=== PATIENT | male | born 1975 | race African-American/Black ===

== ENCOUNTER 2017-02-23 15:19 | Inpatient (IN) | payer OTHER ==
[2017-02-23 17:16] VITALS: BMI 21.7
--- NOTE | 2017-02-23 19:18 | HP ---
CIWA Score - CIWA Score Nausea/Vomitin-No Nausea/No Vomiting Muscle Tremors: 5 Anxiety: 4-Mod. Anxious/Guarded Agitation: 4-Moderately Restless Paroxysmal Sweats: 1-Minimal Palms Moist Orientation: 0-Oriented Tacttile Disturbances: 0-None Auditory Disturbances: 0-None Visual Disturbances: 0-None Headache: 0-None Present CIWA-Ar Total Score: 14 Admission ROS [facility] - HPI Chief Complaint: withdrawal sx Allergies/Adverse Reactions: Allergies Allergy/AdvReac Type Severity Reaction Status Date / Time No Known Allergies Allergy Verified 02/23/17 17:32 History of Present Illness: 41 years old male with long history of alcohol dependence has hiv weight loss bipolar is admitted to detox Exam Limitations: No Limitations - Ebola screening Have you traveled outside of the country in the last 21 days: No Have you had contact with anyone from an Ebola affected area: No Have you been sick,other than usual withdrawal symptoms: No Do you have a fever: No - Review of Systems Constitutional: Loss of Appetite, Changes in sleep, Unintentional Wgt. Loss EENT: reports: No Symptoms Reported Respiratory: reports: No Symptoms reported Cardiac: reports: No Symptoms Reported GI: reports: Nausea, Poor Appetite, Poor Fluid Intake, Abdominal cramping : reports: No Symptoms Reported Musculoskeletal: reports: No Symptoms Reported Integumentary: reports: No Symptoms Reported Neuro: reports: Tremors Endocrine: reports: No Symptoms Reported Hematology: reports: No Symptoms Reported Psychiatric: reports: No Sypmtoms Reported, Judgement Intact, Orientated x3, Anxious, Depressed Other Systems: Reviewed and Negative Patient History - Patient Medical History Hx Anemia: No Hx Asthma: No Hx Chronic Obstructive Pulmonary Disease (COPD): No Hx Cancer: No Hx Cardiac Disorders: No Hx Congestive Heart Failure: No Hx Hypertension: No Hx Hypercholesterolemia: No Hx Pacemaker: No HX Cerebrovascular Accident: No Hx Seizures: No Hx Dementia: No Hx Diabetes: No Hx Gastrointestinal Disorders: No Hx Liver Disease: No Hx Genitourinary Disorders: No Hx Sexually Transmitted Disorders: No Hx Renal Disease (ESRD): No Hx Thyroid Disease: No Hx Human Immunodeficiency Virus (HIV): Yes (2010) Hx Hepatitis C: No Hx Depression: No Hx Suicide Attempt: Yes (cut both arm age 16) Hx Bipolar Disorder: Yes Hx Schizophrenia: No - Patient Surgical History Past Surgical History: No Hx Neurologic Surgery: No Hx Cataract Extraction: No Hx Cardiac Surgery: No Hx Lung Surgery: No Hx Breast Surgery: No Hx Breast Biopsy: No Hx Abdominal Surgery: No Hx Appendectomy: No Hx Cholecystectomy: No Hx Genitourinary Surgery: No Hx Orthopedic Surgery: No - PPD History Previous Implant?: Yes Documented Results: Negative w/o proof Implanted On Prior R Admission?: No PPD to be Administered?: Yes - Smoking Cessation Smoking history: Never smoked Have you smoked in the past 12 months: No Aproximately how many cigarettes per day: 0 Cigars Per Day: 0 Hx Chewing Tobacco Use: No Initiated information on smoking cessation: No - Substance & Tx. History Hx Alcohol Use: Yes Hx Substance Use: No Substance Use Type: Alcohol Hx Substance Use Treatment: Yes (2011) - Substances Abused Alcohol Route: Oral Frequency: Daily Amount used: beer- 3 cases x24oz Age of first use: 16 Date of Last Use: 02/23/17 Family Disease History - Family Disease History Family Disease History: Diabetes: Grandparent, Heart Disease: Father () , Other: Father Admission Physical Exam [facility] - Vital Signs Vital Signs: Vital Signs - 24 hr 02/23/17 17:13 Temperature 97.7 F Pulse Rate 88 Respiratory 18 Rate Blood Pressure 117/80 - Physical General Appearance: Yes: Appropriately Dressed, Mild Distress, Alcohol on Breath , Thin, Tremorous, Irritable, Sweating, Anxious HEENTM: Yes: Hearing grossly Normal, Normal ENT Inspection, Normocephalic, Normal Voice Respiratory: Yes: Chest Non-Tender, Lungs Clear, Normal Breath Sounds, No Respiratory Distress, No Accessory Muscle Use Neck: Yes: Supple, Trachea in good position Breast: Yes: Breasts Symetrical Cardiology: Yes: Regular Rhythm, Regular Rate, S1, S2 Abdominal: Yes: Normal Bowel Sounds, Non Tender, Soft Genitourinary: Yes: Within Normal Limits Back: Yes: Normal Inspection Musculoskeletal: Yes: full range of Motion, Gait Steady Extremities: Yes: Normal Inspection, Normal Range of Motion, Non-Tender, Tremors Neurological: Yes: Fully Oriented, Alert, Motor Strength 5/5, Normal Response, Depressed Affect Integumentary: Yes: Warm Lymphatic: Yes: Within Normal Limits - Diagnostic (1) Alcohol dependence with uncomplicated withdrawal Current Visit: Yes Status: Acute (2) HIV (human immunodeficiency virus infection) Current Visit: Yes Status: Chronic (3) Weight loss Current Visit: Yes Status: Acute (4) Bipolar II disorder Current Visit: Yes Status: Suspected Cleared for Admission [facility] - Detox or Rehab [facility] Level of Care: Medically Managed Detox Regimen/Protocol: Librium S Breath Alcohol Content Breath Alcohol Content: 0.050 Urine Drug Screen - Results Drug Screen Negative: Yes
[2017-02-23] MEDS ORDERED: IBUPROFEN 400 MG TABLET (FP) PO PRN (19:31)
[2017-02-23] MEDS ORDERED: guaiFENesin/D-METHORPHAN HB 10 ML UNIT-DOSE CUPS PO PRN (19:31)
[2017-02-23] MEDS ORDERED: MAGNESIUM HYDROX 2400MG/30ML ORAL SUSPENSION 30 ML CUP PO PRN (19:31)
[2017-02-23] MEDS ORDERED: MAG HYDROX/AL HYDROX/SIMETH 30 ML UNIT-DOSE CUP PO PRN (19:31)
[2017-02-23] MEDS ORDERED: ACETAMINOPHEN 325 MG TABLET (FP) PO PRN (19:31)
[2017-02-23] MEDS ORDERED: LOPERAMIDE HCL 2 MG CAPSULE PO PRN (19:31)
[2017-02-23] MEDS ORDERED: P-EPHED 60MG/TRIPROLIDI 2.5MG TABLET PO PRN (19:31)
[2017-02-23] MEDS ORDERED: MAGNESIUM CITRATE 300 ML BOTTLE PO PRN (19:31)
[2017-02-23] MEDS ORDERED: MENTHOL/PHENOL 1 EACH UD MM PRN (19:31)
[2017-02-23] MEDS ORDERED: chlordiazePOXIDE HCL 25 MG CAPSULE PO PRN (19:31)
[2017-02-23] MEDS: THIAMINE HCL 100 MG TABLET (FP) PO SCH (22:10)
[2017-02-23] MEDS: chlordiazePOXIDE HCL 25 MG CAPSULE PO SCH (22:10)
[2017-02-24 00:46] LABS: URINE APPEARANCE CLEAR; URINE BILIRUBIN NEGATIVE (NEGATIVE); URINE BLOOD NEGATIVE (NEGATIVE); URINE COLOR LTYELLOW; URINE GLUCOSE (UA) NEGATIVE (NEGATIVE); URINE KETONE TRACE (NEGATIVE); URINE NITRITE NEGATIVE (NEGATIVE); URINE PROTEIN NEGATIVE (NEGATIVE); URINE UROBILINOGEN NEGATIVE mg/dL (0.2-1.0)
[2017-02-24] MEDS: chlordiazePOXIDE HCL 25 MG CAPSULE PO SCH ×5 (05:17→22:04)
[2017-02-24 09:56] LABS: MCH 27.9 pg (25.7-33.7); MCHC 31.6 g/dl (32.0-35.9); MEAN CELL VOLUME 88.1 fl (80-96); MEAN PLT VOLUME 9.2 fl (7.5-11.1); PLATELET COUNT 228 K/MM3 (134-434); RDW 13.1 % (11.9-15.9); WHITE BLOOD COUNT 5.4 K/mm3 (4.0-10.0)
[2017-02-24] MEDS: PRENATAL VITAMINS W/ FOLIC ACID TABLET (FP) PO SCH (10:21)
[2017-02-24 10:42] LABS: ALBUMIN 3.5 g/dl (3.4-5.0); ALK PHOS 83 U/L (45-117); ANION GAP 7 (8-16); BILIRUBIN,TOTAL 1.1 mg/dL (0.2-1.0); CALCIUM 8.9 mg/dL (8.5-10.1); CO2 30 mmol/L (21-32); GLUCOSE,RANDOM 81 mg/dL (74-106); SGOT/AST 12 U/L (15-37); SGPT/ALT 17 U/L (12-78); TOT PROT 6.7 g/dl (6.4-8.2)
[2017-02-24 11:37] LABS: URINE LEUK ESTERASE Negative (NEGATIVE)
--- NOTE | 2017-02-24 11:51 | CONSULT ---
[facility] Psychiatric Consult - Data Date of interview: 02/24/17 Admission source: [facility] Identifying data: Second admission to [facility] for this 41 y/o AA male seeking detox treatment on for alcohol dependence.Patient is single without children,domiciled,unemployed and supported on SSI + SSD benefits. Substance Abuse History: Patient admits to active use of alcohol. See [facility] report for details. Smoking history: Never smoked. Have you smoked in the past 12 months: No. Aproximately how many cigarettes per day: 0. Cigars Per Day: 0. Hx Chewing Tobacco Use: No. Initiated information on smoking cessation : No. - Substance & Tx. History. Hx Alcohol Use: Yes. Hx Substance Use: No. Substance Use Type: Alcohol. Hx Substance Use Treatment: Yes (2011). - Substances Abused. Alcohol. Route: Oral. Frequency: Daily. Amount used: beer- 3 cases x24oz. Age of first use: 16. Date of Last Use: 02/23/17 Medical History: HIV infection since 2010. Psychiatric History: Onset of mental illness : age 16. History of multiple psychiatric hospitalizations ([place] and [place]).Diagnosed with Schizoaffective Disorder.Patient states that he used to be prescribed trazodone, effexor and zyprexa.Has dropped out of follow up since June 2016 (self-report) .No OPD care since his ejection from [facility] in the [place].History of suicide attempts via self-mutilation. Physical/Sexual Abuse/Trauma History: Patient denies history of abuse. Additional Comment: Drug Screen is negative. Mental Status Exam - Mental Status Exam Alert and Oriented to: Time, Place, Person Cognitive Function: Good Patient Appearance: Well Groomed (tattoos on neck,forearms) Mood: Hopeful, Euthymic Affect: Appropriate, Normal Range Patient Behavior: Appropriate, Cooperative Speech Pattern: Clear Voice Loudness: Normal Thought Process: Goal Oriented Thought Disorder: Not Present Hallucinations: Denies Suicidal Ideation: Denies Homicidal Ideation: Denies Insight/Judgement: Poor Sleep: Poorly, Difficulty falling asleep Appetite: Good Muscle strength/Tone: Normal Gait/Station: Normal Psychiatric Findings - Problem List ([place] 1, 2,3) (1) Alcohol dependence with uncomplicated withdrawal Current Visit: Yes Status: Acute (2) Schizoaffective disorder Current Visit: No Status: Chronic Comment: Self-report.Non compliant with medications. (3) Insomnia Current Visit: Yes Status: Acute - Initial Treatment Plan Initial Treatment Plan: Psychoeducation.Sleep hygiene.Detoxification.Patient declines to resume psychotropic medications outside of the scope of detoxification.Made aware of importance of adherence to OPD care.Observation.
--- NOTE | 2017-02-24 12:16 | PN ---
[facility] CIWA - CIWA Score Nausea/Vomitin-No Nausea/No Vomiting Muscle Tremors: None Anxiety: 4-Mod. Anxious/Guarded Agitation: 4-Moderately Restless Paroxysmal Sweats: 3 Orientation: 0-Oriented Tacttile Disturbances: 3-Moderate Itch/Numb/Burn Auditory Disturbances: 2-Mild Harshness/Frighten Visual Disturbances: 0-None Headache: 0-None Present CIWA-Ar Total Score: 16 S Progress Note (SOAP) Subjective: Chills, Sweating, Anxious, Body Aches. Objective: PT. A & O X 3, OBSERVED AMBULATING ON UNIT. NO ACUTE DISTRESS. 02/24/17 12:14 Vital Signs Temperature 97.9 F 02/24/17 10:49 Pulse Rate 81 02/24/17 10:49 Respiratory Rate 16 02/24/17 10:49 Blood Pressure 129/74 02/24/17 10:49 O2 Sat by Pulse Oximetry (%) Laboratory Tests 02/23/17 02/24/17 02/24/17 23:00 07:00 07:00 WBC 5.4 RBC 4.87 Hgb 13.6 Hct 42.9 MCV 88.1 MCH 27.9 MCHC 31.6 L RDW 13.1 Plt Count 228 MPV 9.2 Sodium 141 Potassium 4.3 Chloride 104 Carbon Dioxide 30 Anion Gap 7 L BUN 10 Creatinine 1.0 Creat Clearance w eGFR > 60 Random Glucose 81 Calcium 8.9 Total Bilirubin 1.1 H AST 12 L ALT 17 Alkaline Phosphatase 83 Total Protein 6.7 Albumin 3.5 Urine Color Ltyellow Urine Appearance Clear Urine pH 6.0 Ur Specific [place] 1.011 Urine Protein Negative Urine Glucose (UA) Negative Urine Ketones Trace H Urine Blood Negative Urine Nitrite Negative Urine Bilirubin Negative Urine Urobilinogen Negative Ur Leukocyte Esterase Negative RPR Titer 02/24/17 07:00 WBC RBC Hgb Hct MCV MCH MCHC RDW Plt Count MPV Sodium Potassium Chloride Carbon Dioxide Anion Gap BUN Creatinine Creat Clearance w eGFR Random Glucose Calcium Total Bilirubin AST ALT Alkaline Phosphatase Total Protein Albumin Urine Color Urine Appearance Urine pH Ur Specific [place] Urine Protein Urine Glucose (UA) Urine Ketones Urine Blood Urine Nitrite Urine Bilirubin Urine Urobilinogen Ur Leukocyte Esterase RPR Titer Nonreactive LABS NOTED. Assessment: 02/24/17 12:14 WITHDRAWAL SYMPTOMS. Plan: CONTINUE DETOX. INCREASE DAILY PO FLUID INTAKE. ENCOURAGE AMBULATION.
--- NOTE | 2017-02-24 12:44 | EKG ---
Test Reason : Blood Pressure : / mmHG Vent. Rate : 083 BPM Atrial Rate : 083 BPM P-R Int : 166 ms QRS Dur : 076 ms QT Int : 368 ms P-R-T Axes : 037 075 056 degrees QTc Int : 432 ms NORMAL SINUS RHYTHM NORMAL ECG NO PREVIOUS ECGS AVAILABLE CLINICAL CORRELATION IS RECOMMENDED Confirmed by LARISSA GUIDRY MD ([id number]) on 02/24/2017 12:43:36 PM Referred By: Confirmed By:LARISSA GUIDRY MD
[2017-02-24] MEDS: THIAMINE HCL 100 MG TABLET (FP) PO SCH (22:04)
[2017-02-25] MEDS: chlordiazePOXIDE HCL 25 MG CAPSULE PO SCH ×3 (05:06→17:12)
[2017-02-25] MEDS: PRENATAL VITAMINS W/ FOLIC ACID TABLET (FP) PO SCH (10:09)
--- NOTE | 2017-02-25 11:34 | PN ---
[facility] CIWA - CIWA Score Nausea/Vomitin-No Nausea/No Vomiting Muscle Tremors: 2 Anxiety: 4-Mod. Anxious/Guarded Agitation: 3 Paroxysmal Sweats: 3 Orientation: 0-Oriented Tacttile Disturbances: 2-Mild Itch/Numbness/Burn Auditory Disturbances: 0-None Visual Disturbances: 1-Very Mild Sensitivity Headache: 0-None Present CIWA-Ar Total Score: 15 S Progress Note (SOAP) Subjective: Sweating, Body Aches, Chills, Tremors. Objective: PT. A & O X 3, OBSERVED AMBULATING ON UNIT. NO ACUTE DISTRESS. 02/25/17 11:31 Vital Signs Temperature 96.9 F L 02/25/17 09:34 Pulse Rate 90 02/25/17 09:34 Respiratory Rate 18 02/25/17 09:34 Blood Pressure 114/71 02/25/17 09:34 O2 Sat by Pulse Oximetry (%) Laboratory Tests 02/23/17 02/24/17 02/24/17 23:00 07:00 07:00 WBC 5.4 RBC 4.87 Hgb 13.6 Hct 42.9 MCV 88.1 MCH 27.9 MCHC 31.6 L RDW 13.1 Plt Count 228 MPV 9.2 Sodium 141 Potassium 4.3 Chloride 104 Carbon Dioxide 30 Anion Gap 7 L BUN 10 Creatinine 1.0 Creat Clearance w eGFR > 60 Random Glucose 81 Hemoglobin A1c % Calcium 8.9 Total Bilirubin 1.1 H AST 12 L ALT 17 Alkaline Phosphatase 83 Total Protein 6.7 Albumin 3.5 Urine Color Ltyellow Urine Appearance Clear Urine pH 6.0 Ur Specific [place] 1.011 Urine Protein Negative Urine Glucose (UA) Negative Urine Ketones Trace H Urine Blood Negative Urine Nitrite Negative Urine Bilirubin Negative Urine Urobilinogen Negative Ur Leukocyte Esterase Negative RPR Titer 02/24/17 02/24/17 07:00 07:00 WBC RBC Hgb Hct MCV MCH MCHC RDW Plt Count MPV Sodium Potassium Chloride Carbon Dioxide Anion Gap BUN Creatinine Creat Clearance w eGFR Random Glucose Hemoglobin A1c % 4.7 L Calcium Total Bilirubin AST ALT Alkaline Phosphatase Total Protein Albumin Urine Color Urine Appearance Urine pH Ur Specific [place] Urine Protein Urine Glucose (UA) Urine Ketones Urine Blood Urine Nitrite Urine Bilirubin Urine Urobilinogen Ur Leukocyte Esterase RPR Titer Nonreactive LABS NOTED. Assessment: 02/25/17 11:33 WITHDRAWAL SYMPTOMS. Plan: CONTINUE DETOX. INCREASE DAILY PO FLUID INTAKE.
[2017-02-25] MEDS: chlordiazePOXIDE 5 MG CAPSULE PO SCH (22:34)
[2017-02-25] MEDS: THIAMINE HCL 100 MG TABLET (FP) PO SCH (22:34)
[2017-02-26] MEDS: chlordiazePOXIDE 5 MG CAPSULE PO SCH ×3 (05:44→17:01)
[2017-02-26] MEDS: PRENATAL VITAMINS W/ FOLIC ACID TABLET (FP) PO SCH (10:08)
--- NOTE | 2017-02-26 13:30 | PN ---
[facility] Progress Note (SOAP) Subjective: Anxious. Objective: PT. A & O X 3, OBSERVED AMBULATING ON UNIT. NO ACUTE DISTRESS. 02/26/17 13:29 Vital Signs Temperature 98.0 F 02/26/17 09:53 Pulse Rate 83 02/26/17 09:53 Respiratory Rate 18 02/26/17 09:53 Blood Pressure 116/68 02/26/17 09:53 O2 Sat by Pulse Oximetry (%) Laboratory Tests 02/23/17 02/24/17 02/24/17 23:00 07:00 07:00 WBC 5.4 RBC 4.87 Hgb 13.6 Hct 42.9 MCV 88.1 MCH 27.9 MCHC 31.6 L RDW 13.1 Plt Count 228 MPV 9.2 Sodium 141 Potassium 4.3 Chloride 104 Carbon Dioxide 30 Anion Gap 7 L BUN 10 Creatinine 1.0 Creat Clearance w eGFR > 60 Random Glucose 81 Hemoglobin A1c % Calcium 8.9 Total Bilirubin 1.1 H AST 12 L ALT 17 Alkaline Phosphatase 83 Total Protein 6.7 Albumin 3.5 Urine Color Ltyellow Urine Appearance Clear Urine pH 6.0 Ur Specific [place] 1.011 Urine Protein Negative Urine Glucose (UA) Negative Urine Ketones Trace H Urine Blood Negative Urine Nitrite Negative Urine Bilirubin Negative Urine Urobilinogen Negative Ur Leukocyte Esterase Negative RPR Titer 02/24/17 02/24/17 07:00 07:00 WBC RBC Hgb Hct MCV MCH MCHC RDW Plt Count MPV Sodium Potassium Chloride Carbon Dioxide Anion Gap BUN Creatinine Creat Clearance w eGFR Random Glucose Hemoglobin A1c % 4.7 L Calcium Total Bilirubin AST ALT Alkaline Phosphatase Total Protein Albumin Urine Color Urine Appearance Urine pH Ur Specific [place] Urine Protein Urine Glucose (UA) Urine Ketones Urine Blood Urine Nitrite Urine Bilirubin Urine Urobilinogen Ur Leukocyte Esterase RPR Titer Nonreactive LABS NOTED. Assessment: 02/26/17 13:30 WITHDRAWAL SYMPTOMS. Plan: CONTINUE DETOX. INCREASE DAILY PO FLUID INTAKE.
[2017-02-26] MEDS: chlordiazePOXIDE HCL 10 MG CAPSULE PO SCH (22:07)
[2017-02-26] MEDS: THIAMINE HCL 100 MG TABLET (FP) PO SCH (22:07)
[2017-02-27] MEDS: chlordiazePOXIDE HCL 10 MG CAPSULE PO SCH (06:36)
[2017-02-27 10:03] VITALS: BP 115/69; PULSE 86; TEMP 97.2
--- NOTE | 2017-02-27 17:21 | DS ---
[facility] Detox Discharge Summary Admission Date: 02/23/17 Discharge Date: 02/27/17 - History Present History: Alcohol Dependence Additional Comments: PATIENT ADVISED TO CONSIDER LOCAL 12-STEP / AA OUTPATIENT SUPPORT GROUP MEETINGS FOR AFTERCARE. PATIENT WAS DISCHARGED FROM DETOX UNIT IN STABLE MEDICAL CONDITION. Pertinent Past History: Bipolar Disorder, HIV, Schizoaffective Disorder, Weight Loss, Insomnia. - Physical Exam Results Vital Signs: Vital Signs Temperature 97.2 F L 02/27/17 10:01 Pulse Rate 86 02/27/17 10:01 Respiratory Rate 20 02/27/17 10:01 Blood Pressure 115/69 02/27/17 10:01 O2 Sat by Pulse Oximetry (%) Pertinent Admission Physical Exam Findings: WITHDRAWAL SYMPTOMS. Laboratory Tests 02/23/17 02/24/17 02/24/17 23:00 07:00 07:00 WBC 5.4 RBC 4.87 Hgb 13.6 Hct 42.9 MCV 88.1 MCH 27.9 MCHC 31.6 L RDW 13.1 Plt Count 228 MPV 9.2 Sodium 141 Potassium 4.3 Chloride 104 Carbon Dioxide 30 Anion Gap 7 L BUN 10 Creatinine 1.0 Creat Clearance w eGFR > 60 Random Glucose 81 Hemoglobin A1c % Calcium 8.9 Total Bilirubin 1.1 H AST 12 L ALT 17 Alkaline Phosphatase 83 Total Protein 6.7 Albumin 3.5 Urine Color Ltyellow Urine Appearance Clear Urine pH 6.0 Ur Specific [place] 1.011 Urine Protein Negative Urine Glucose (UA) Negative Urine Ketones Trace H Urine Blood Negative Urine Nitrite Negative Urine Bilirubin Negative Urine Urobilinogen Negative Ur Leukocyte Esterase Negative RPR Titer 02/24/17 02/24/17 07:00 07:00 WBC RBC Hgb Hct MCV MCH MCHC RDW Plt Count MPV Sodium Potassium Chloride Carbon Dioxide Anion Gap BUN Creatinine Creat Clearance w eGFR Random Glucose Hemoglobin A1c % 4.7 L Calcium Total Bilirubin AST ALT Alkaline Phosphatase Total Protein Albumin Urine Color Urine Appearance Urine pH Ur Specific [place] Urine Protein Urine Glucose (UA) Urine Ketones Urine Blood Urine Nitrite Urine Bilirubin Urine Urobilinogen Ur Leukocyte Esterase RPR Titer Nonreactive LABS NOTED. - Treatment Hospital Course: Detox Protocol Followed, Detoxed Safely, Responded well, Discharged Condition Good - Medication Discharge Medications: Ambulatory Orders Emtricitab/Rilpiviri/Tenof Ala [Odefsey Tablet] 1 each PO DAILY 11/20/17 - Diagnosis (1) Alcohol dependence with uncomplicated withdrawal Status: Acute (2) Insomnia Status: Acute Qualifiers: Insomnia type: unspecified Qualified Code(s): G47.00 - Insomnia, unspecified (3) Weight loss Status: Acute (4) HIV (human immunodeficiency virus infection) Status: Chronic (5) Schizoaffective disorder Status: Chronic Qualifiers: Schizoaffective disorder type: unspecified Qualified Code(s): F25.9 - Schizoaffective disorder, unspecified (6) Bipolar II disorder Status: Suspected - AMA Did Patient Leave Against Medical Advice: No
== END 2017-02-27 09:20 | disposition home or self-care (01) | DRG 897 ==
LOC: YASAS 15:19 → Y3N 17:53
PROVIDERS: ADMIT Internal Medicine; ATTEND Internal Medicine
PROC: HZ2ZZZZ Detoxification Services for Substance Abuse Treatment (ICD-10-PCS; principal; 2017-02-23)
DX: F10.230 Alcohol dependence with withdrawal, uncomplicated (principal); F31.81 Bipolar II disorder; F25.9 Schizoaffective disorder, unspecified; Z21 Asymptomatic human immunodeficiency virus [HIV] infection status; Z87.898 Personal history of other specified conditions
CPT/HCPCS: 36415; 80053; 81003; 83036; 85027; 86593; 93005; 93010

== ENCOUNTER 2022-04-28 15:57 | Inpatient (IN) | payer OTHER ==
[2022-04-28 17:29] VITALS: BMI 22.1
[2022-04-28] MEDS ORDERED: IBUPROFEN 400 MG TABLET (FP) PO PRN (19:17)
[2022-04-28] MEDS ORDERED: BISMUTH SUBSALICYLATE 524 MG/30 ML PO PRN (19:17)
[2022-04-28] MEDS ORDERED: POLYETHYLENE GLYCOL (HEALTHYLAX) 3350 17 GM PACKET PO PRN (19:17)
[2022-04-28] MEDS ORDERED: P-EPHED 60MG/TRIPROLIDI 2.5MG TABLET PO PRN (19:17)
[2022-04-28] MEDS ORDERED: MAGNESIUM HYDROX 2400MG/30ML ORAL SUSPENSION 30 ML CUP PO PRN (19:17)
[2022-04-28] MEDS ORDERED: DICYCLOMINE HCL 10 MG CAPSULE PO PRN (19:17)
[2022-04-28] MEDS ORDERED: MAG HYDROX/AL HYDROX/SIMETH 30 ML UNIT-DOSE CUP PO PRN (19:17)
[2022-04-28] MEDS ORDERED: ONDANSETRON *ODT* 4 MG TABLET SL PRN (19:17)
[2022-04-28] MEDS ORDERED: IBUPROFEN 600 MG TABLET (FP) PO PRN (19:17)
[2022-04-28] MEDS ORDERED: METHOCARBAMOL 500 MG TABLET PO PRN (19:17)
[2022-04-28] MEDS ORDERED: ACETAMINOPHEN 325 MG TABLET (FP) PO PRN ×2 (19:17)
[2022-04-28] MEDS ORDERED: LOPERAMIDE HCL 2 MG CAPSULE PO PRN (19:17)
[2022-04-28] MEDS ORDERED: BENZOCAINE/MENTHOL (CHLORASEPTIC ) LOZENGE MM PRN (19:17)
[2022-04-28] MEDS ORDERED: diazePAM 5 MG TABLET PO PRN (19:27)
[2022-04-28] MEDS ORDERED: levETIRAcetam 500 MG TABLET (FP) PO SCH (22:00)
[2022-04-28] MEDS: MELATONIN 5 MG TABLETS PO PRN (22:26)
[2022-04-28] MEDS: THIAMINE HCL 100 MG TABLET (FP) PO SCH (22:26)
[2022-04-28] MEDS: levETIRAcetam 500 MG TABLET (FP) PO SCH (22:26)
[2022-04-29] MEDS ORDERED: chlordiazePOXIDE HCL 25 MG CAPSULE PO PRN (10:43)
[2022-04-29] MEDS: PRENATAL VITAMINS W/ FOLIC ACID TABLET (FP) PO SCH (11:00)
[2022-04-29] MEDS: levETIRAcetam 500 MG TABLET (FP) PO SCH ×2 (11:01→21:50)
[2022-04-29 11:25] LABS: HEMATOCRIT 41.4 % (35.4-49); MCH 27.4 pg (25.7-33.7); MCHC 31.4 g/dl (32.0-35.9); MEAN CELL VOLUME 87.1 fl (80-96); MEAN PLT VOLUME 8.5 fl (7.5-11.1); PLATELET COUNT 317 10^3/uL (134-434); RBC 4.75 M/mm3 (4.00-5.60); RDW 13.1 % (11.9-15.9); WHITE BLOOD COUNT 6.9 K/mm3 (4.0-10.0)
[2022-04-29 11:51] LABS: CREATININE 1.1 mg/dL (0.55-1.3)
[2022-04-29 11:52] LABS: ALBUMIN 3.4 g/dl (3.4-5.0); BLOOD UREA NITROGEN 13.6 mg/dL (7-18); TOT PROT 7.2 g/dl (6.4-8.2)
[2022-04-29 11:53] LABS: BILIRUBIN,TOTAL 0.4 mg/dL (0.2-1)
[2022-04-29] MEDS ORDERED: FLU VACC QS2022-23(6MOS UP)/PF 60 MCG/0.5 ML SYRINGE IM ONE (12:00)
[2022-04-29] MEDS: BICTEGRAV/EMTRICIT/TENOFOV (BIKTARVY) 50-200-25 MG TABLET PO SCH (13:28)
[2022-04-29] MEDS: chlordiazePOXIDE HCL 25 MG CAPSULE PO SCH ×2 (17:45→22:01)
[2022-04-29] MEDS: traZODone HCL 100 MG TABLET (FP) PO SCH (21:50)
[2022-04-29] MEDS: THIAMINE HCL 100 MG TABLET (FP) PO SCH (21:50)
[2022-04-29] MEDS: MELATONIN 5 MG TABLETS PO PRN (21:50)
[2022-04-29] MEDS: guaiFENesin 200 MG/10 ML 10 ML UNIT-DOSE CUPS PO PRN (21:59)
[2022-04-30] MEDS: chlordiazePOXIDE HCL 25 MG CAPSULE PO SCH ×2 (06:14→10:52)
[2022-04-30] MEDS: BICTEGRAV/EMTRICIT/TENOFOV (BIKTARVY) 50-200-25 MG TABLET PO SCH (07:53)
[2022-04-30] MEDS: levETIRAcetam 500 MG TABLET (FP) PO SCH ×2 (10:51→21:53)
[2022-04-30] MEDS: PRENATAL VITAMINS W/ FOLIC ACID TABLET (FP) PO SCH (10:51)
[2022-04-30] MEDS: guaiFENesin 200 MG/10 ML 10 ML UNIT-DOSE CUPS PO PRN ×2 (10:56→22:22)
[2022-04-30] MEDS: chlordiazePOXIDE HCL 10 MG CAPSULE PO SCH ×2 (18:09→22:21)
[2022-04-30] MEDS: THIAMINE HCL 100 MG TABLET (FP) PO SCH (21:53)
[2022-04-30] MEDS: traZODone HCL 100 MG TABLET (FP) PO SCH (21:55)
[2022-05-01] MEDS ORDERED: chlordiazePOXIDE HCL 10 MG CAPSULE PO PRN
[2022-05-01] MEDS: chlordiazePOXIDE HCL 10 MG CAPSULE PO SCH ×4 (06:21→22:52)
[2022-05-01] MEDS: BICTEGRAV/EMTRICIT/TENOFOV (BIKTARVY) 50-200-25 MG TABLET PO SCH (07:11)
[2022-05-01] MEDS: PRENATAL VITAMINS W/ FOLIC ACID TABLET (FP) PO SCH (10:57)
[2022-05-01] MEDS: levETIRAcetam 500 MG TABLET (FP) PO SCH ×2 (10:57→22:52)
[2022-05-01] MEDS: traZODone HCL 100 MG TABLET (FP) PO SCH (22:52)
[2022-05-01] MEDS: THIAMINE HCL 100 MG TABLET (FP) PO SCH (22:52)
[2022-05-02] MEDS ORDERED: chlordiazePOXIDE HCL 10 MG CAPSULE PO SCH (05:00)
[2022-05-02] MEDS: BICTEGRAV/EMTRICIT/TENOFOV (BIKTARVY) 50-200-25 MG TABLET PO SCH (07:33)
[2022-05-02] MEDS: levETIRAcetam 500 MG TABLET (FP) PO SCH (09:44)
[2022-05-02] MEDS: PRENATAL VITAMINS W/ FOLIC ACID TABLET (FP) PO SCH (09:44)
[2022-05-02 10:07] VITALS: BP 129/61; PULSE 100; RESP 17; TEMP 97.5
[2022-05-03] MEDS ORDERED: chlordiazePOXIDE HCL 10 MG CAPSULE PO ONE (05:00)
== END 2022-05-02 10:08 | disposition home or self-care (01) | DRG 896 ==
LOC: YASAS 15:57 → Y6N 20:33 → UNDOADMIN 20:33 → Y6N 04-29 02:00
PROVIDERS: ADMIT Allergy & Immunology; ATTEND Family Medicine
PROC: HZ2ZZZZ Detoxification Services for Substance Abuse Treatment (ICD-10-PCS; principal; 2022-04-28)
DX: F10.230 Alcohol dependence with withdrawal, uncomplicated (principal); U07.1 COVID-19; F14.20 Cocaine dependence, uncomplicated; F19.282 Other psychoactive substance dependence with psychoactive substance-induced sleep disorder; F19.280 Other psychoactive substance dependence with psychoactive substance-induced anxiety disorder; B20 Human immunodeficiency virus [HIV] disease; F31.81 Bipolar II disorder; F10.280 Alcohol dependence with alcohol-induced anxiety disorder; F10.282 Alcohol dependence with alcohol-induced sleep disorder; F10.24 Alcohol dependence with alcohol-induced mood disorder; F19.24 Other psychoactive substance dependence with psychoactive substance-induced mood disorder; F25.9 Schizoaffective disorder, unspecified; F43.10 Post-traumatic stress disorder, unspecified; Z79.899 Other long term (current) drug therapy; G40.909 Epilepsy, unspecified, not intractable, without status epilepticus; Z62.810 Personal history of physical and sexual abuse in childhood; R63.4 Abnormal weight loss; Z68.22 Body mass index [BMI] 22.0-22.9, adult; Z91.51 Personal history of suicidal behavior; Z28.310 Unvaccinated for COVID-19; Z28.9 Immunization not carried out for unspecified reason
CPT/HCPCS: 36415; 80053; 80177; 85027; 86593; 86780; 87811; C9803-CS; G0008; Q2036; U0003; U0005

== ENCOUNTER 2023-01-01 14:51 | Inpatient (IN) | payer OTHER ==
[2023-01-01] MEDS ORDERED: POLYETHYLENE GLYCOL (HEALTHYLAX) 3350 17 GM PACKET PO PRN (16:13)
[2023-01-01] MEDS ORDERED: BENZOCAINE/MENTHOL (CHLORASEPTIC ) LOZENGE MM PRN (16:13)
[2023-01-01] MEDS ORDERED: guaiFENesin 600 MG TABLET.ER (FP) PO PRN (16:13)
[2023-01-01] MEDS ORDERED: COLLOIDAL OATMEAL 1 BAR EACH TP PRN (16:13)
[2023-01-01] MEDS ORDERED: NALOXONE HCL (KLOXXADO) 8 MG SPRAY NS PRN (16:13)
[2023-01-01] MEDS ORDERED: MAGNESIUM HYDROX 2400MG/30ML ORAL SUSPENSION 30 ML CUP PO PRN (16:13)
[2023-01-01] MEDS ORDERED: IBUPROFEN 600 MG TABLET (FP) PO PRN (16:13)
[2023-01-01] MEDS ORDERED: MAG HYDROX/AL HYDROX/SIMETH 30 ML UNIT-DOSE CUP PO PRN (16:13)
[2023-01-01] MEDS ORDERED: hydrOXYzine PAMOATE 25 MG CAPSULE (FP) PO PRN (16:13)
[2023-01-01] MEDS ORDERED: NALOXONE HCL 0.4 MG/ML VIAL IVPUSH PRN (16:13)
[2023-01-01] MEDS ORDERED: METHOCARBAMOL 500 MG TABLET PO PRN (16:13)
[2023-01-01] MEDS ORDERED: IBUPROFEN 400 MG TABLET (FP) PO PRN (16:13)
[2023-01-01] MEDS ORDERED: LOPERAMIDE HCL 2 MG CAPSULE PO PRN (16:13)
[2023-01-01] MEDS ORDERED: BENZONATATE 200 MG CAPSULE PO PRN (16:13)
[2023-01-01] MEDS ORDERED: ACETAMINOPHEN 325 MG TABLET (FP) PO PRN (16:13)
[2023-01-01] MEDS: traZODone HCL 50 MG TABLET (FP) PO SCH (21:24)
[2023-01-01] MEDS: THIAMINE HCL 100 MG TABLET (FP) PO SCH (21:24)
[2023-01-01] MEDS: levETIRAcetam 500 MG TABLET (FP) PO SCH (21:24)
[2023-01-01] MEDS: MELATONIN 5 MG TABLETS PO SCH (21:47)
[2023-01-02] MEDS: BICTEGRAV/EMTRICIT/TENOFOV (BIKTARVY) 50-200-25 MG TABLET PO SCH (06:43)
[2023-01-02] MEDS: PRENATAL VITAMINS W/ FOLIC ACID TABLET (FP) PO SCH (09:52)
[2023-01-02] MEDS: levETIRAcetam 500 MG TABLET (FP) PO SCH ×2 (09:53→21:14)
[2023-01-02] MEDS: traZODone HCL 50 MG TABLET (FP) PO SCH (21:14)
[2023-01-02] MEDS: MELATONIN 5 MG TABLETS PO SCH (21:14)
[2023-01-02] MEDS: THIAMINE HCL 100 MG TABLET (FP) PO SCH (21:14)
[2023-01-03] MEDS: BICTEGRAV/EMTRICIT/TENOFOV (BIKTARVY) 50-200-25 MG TABLET PO SCH (06:08)
[2023-01-03] MEDS: levETIRAcetam 500 MG TABLET (FP) PO SCH ×2 (10:27→21:31)
[2023-01-03] MEDS: PRENATAL VITAMINS W/ FOLIC ACID TABLET (FP) PO SCH (10:27)
[2023-01-03] MEDS: MELATONIN 5 MG TABLETS PO SCH (21:31)
[2023-01-03] MEDS: traZODone HCL 50 MG TABLET (FP) PO SCH (21:31)
[2023-01-03] MEDS: THIAMINE HCL 100 MG TABLET (FP) PO SCH (21:31)
[2023-01-04] MEDS: BICTEGRAV/EMTRICIT/TENOFOV (BIKTARVY) 50-200-25 MG TABLET PO SCH (06:17)
[2023-01-04] MEDS: levETIRAcetam 500 MG TABLET (FP) PO SCH ×2 (09:57→21:25)
[2023-01-04] MEDS: PRENATAL VITAMINS W/ FOLIC ACID TABLET (FP) PO SCH (09:57)
[2023-01-04] MEDS: traZODone HCL 50 MG TABLET (FP) PO SCH (21:25)
[2023-01-04] MEDS: MELATONIN 5 MG TABLETS PO SCH (21:25)
[2023-01-04] MEDS: THIAMINE HCL 100 MG TABLET (FP) PO SCH (21:25)
[2023-01-05] MEDS: BICTEGRAV/EMTRICIT/TENOFOV (BIKTARVY) 50-200-25 MG TABLET PO SCH (05:56)
[2023-01-05 07:17] VITALS: RESP 18
[2023-01-05] MEDS: PRENATAL VITAMINS W/ FOLIC ACID TABLET (FP) PO SCH (10:14)
[2023-01-05] MEDS: levETIRAcetam 500 MG TABLET (FP) PO SCH ×2 (10:14→21:21)
[2023-01-05] MEDS: MELATONIN 5 MG TABLETS PO SCH (21:21)
[2023-01-05] MEDS: traZODone HCL 50 MG TABLET (FP) PO SCH (21:21)
[2023-01-05] MEDS: THIAMINE HCL 100 MG TABLET (FP) PO SCH (21:21)
[2023-01-06] MEDS: BICTEGRAV/EMTRICIT/TENOFOV (BIKTARVY) 50-200-25 MG TABLET PO SCH ×2 (07:00→07:12)
[2023-01-06 07:22] VITALS: BP 126/74; PULSE 68; TEMP 97.6
== END 2023-01-06 06:00 | disposition left against medical advice (07) | DRG 894 ==
LOC: YASAS 14:51 → Y5N 14:54
PROVIDERS: ADMIT Allergy & Immunology; ATTEND Psychiatry & Neurology Pain Medicine
PROC: HZ42ZZZ Group Counseling for Substance Abuse Treatment, Cognitive-Behavioral (ICD-10-PCS; principal; 2023-01-01)
DX: F10.20 Alcohol dependence, uncomplicated (principal); F14.20 Cocaine dependence, uncomplicated; B20 Human immunodeficiency virus [HIV] disease; F25.9 Schizoaffective disorder, unspecified; F43.10 Post-traumatic stress disorder, unspecified; G40.909 Epilepsy, unspecified, not intractable, without status epilepticus; Z79.899 Other long term (current) drug therapy; Z86.19 Personal history of other infectious and parasitic diseases; Z91.148 Patient's other noncompliance with medication regimen for other reason
CPT/HCPCS: 36415; 86803

== ENCOUNTER 2024-04-19 17:49 | Inpatient (IN) | payer OTHER ==
[2024-04-19 18:20] VITALS: BMI 21.2
[2024-04-19] MEDS ORDERED: BENZOCAINE/MENTHOL (CHLORASEPTIC ) LOZENGE MM PRN (18:53)
[2024-04-19] MEDS ORDERED: P-EPHED 60MG/TRIPROLIDI 2.5MG TABLET PO PRN (18:53)
[2024-04-19] MEDS ORDERED: BISMUTH SUBSALICYLATE 524 MG/30 ML PO PRN (18:53)
[2024-04-19] MEDS ORDERED: IBUPROFEN 400 MG TABLET (FP) PO PRN (18:53)
[2024-04-19] MEDS ORDERED: METHOCARBAMOL 500 MG TABLET PO PRN (18:53)
[2024-04-19] MEDS ORDERED: BENZONATATE 200 MG CAPSULE PO PRN (18:53)
[2024-04-19] MEDS ORDERED: DICYCLOMINE HCL 10 MG CAPSULE PO PRN (18:53)
[2024-04-19] MEDS ORDERED: MAGNESIUM HYDROX 2400MG/30ML ORAL SUSPENSION 30 ML CUP PO PRN (18:53)
[2024-04-19] MEDS ORDERED: IBUPROFEN 600 MG TABLET (FP) PO PRN (18:53)
[2024-04-19] MEDS ORDERED: LOPERAMIDE HCL 2 MG CAPSULE PO PRN (18:53)
[2024-04-19] MEDS ORDERED: MAG HYDROX/AL HYDROX/SIMETH 30 ML UNIT-DOSE CUP PO PRN (18:53)
[2024-04-19] MEDS ORDERED: NALOXONE (NARCAN) HCL 4 MG/0.1 ML SPRAY NS PRN (18:53)
[2024-04-19] MEDS ORDERED: ACETAMINOPHEN 325 MG TABLET (FP) PO PRN (18:53)
[2024-04-19] MEDS ORDERED: guaiFENesin 600 MG TABLET.ER (FP) PO PRN (18:53)
[2024-04-19] MEDS ORDERED: POLYETHYLENE GLYCOL (HEALTHYLAX) 3350 17 GM PACKET PO PRN (18:53)
[2024-04-19] MEDS ORDERED: diazePAM 5 MG TABLET PO PRN (19:00)
[2024-04-19] MEDS ORDERED: diazePAM 5 MG TABLET ONE (19:31)
[2024-04-19] MEDS ORDERED: levETIRAcetam 500 MG TABLET (FP) PO ONE (19:31)
[2024-04-19] MEDS: levETIRAcetam 500 MG TABLET (FP) PO SCH (19:44)
[2024-04-19] MEDS: diazePAM 5 MG TABLET PO ONE (19:44)
[2024-04-19] MEDS: diazePAM 5 MG TABLET PO SCH (22:55)
[2024-04-19] MEDS: MELATONIN 5 MG TABLETS PO SCH (22:56)
[2024-04-19] MEDS: THIAMINE 100 MG TABLET PO SCH (22:56)
[2024-04-20] MEDS: PRENATAL VITAMINS W/ FOLIC ACID TABLET (FP) PO SCH (10:34)
[2024-04-20] MEDS: ONDANSETRON *ODT* 4 MG TABLET SL PRN (10:34)
[2024-04-20] MEDS: BICTEGRAV/EMTRICIT/TENOFOV (BIKTARVY) 50-200-25 MG TABLET PO SCH (10:48)
[2024-04-20 11:41] LABS: CHLORIDE 104 mmol/L (98-107); POTASSIUM 4.7 mmol/L (3.5-5.1); SODIUM 137 mmol/L (136-145)
[2024-04-20 11:42] LABS: HEMATOCRIT 42.2 % (35.4-49); HEMOGLOBIN 13.2 GM/dL (11.7-16.9); MCH 26.7 pg (25.7-33.7); MCHC 31.2 g/dl (32.0-35.9); MEAN CELL VOLUME 85.6 fl (80-96); MEAN PLT VOLUME 8.8 fl (7.5-11.1); PLATELET COUNT 190 10^3/uL (134-434); RBC 4.93 M/mm3 (4.00-5.60); RDW 12.5 % (11.9-15.9); WHITE BLOOD COUNT 5.2 K/mm3 (4.0-10.0)
[2024-04-20 11:45] LABS: ANION GAP 2 mmol/L (4-13); CALCIUM 9.4 mg/dL (8.5-10.1); CO2 31 mmol/L (21-32); GLUCOSE,RANDOM 90 mg/dL (74-106)
[2024-04-20 11:47] LABS: ALBUMIN 3.4 g/dl (3.4-5.0)
[2024-04-20 11:48] LABS: SGOT/AST 20 U/L (15-37); SGPT/ALT 19 U/L (13-61)
[2024-04-20 11:49] LABS: BILIRUBIN,TOTAL 0.6 mg/dL (0.2-1); TOT PROT 7.5 g/dl (6.4-8.2)
[2024-04-20 11:51] LABS: ALK PHOS 71 U/L (45-117)
[2024-04-20] MEDS: traZODone HCL 50 MG TABLET (FP) PO SCH (22:11)
[2024-04-21] MEDS: diazePAM 5 MG TABLET PO SCH (06:03)
[2024-04-21] MEDS: hydrOXYzine PAMOATE 25 MG CAPSULE (FP) PO PRN (11:10)
[2024-04-21] MEDS: OLANZapine 10 MG TABLET PO SCH (22:45)
[2024-04-22] MEDS: diazePAM 5 MG TABLET PO SCH (06:15)
[2024-04-23] MEDS: diazePAM 5 MG TABLET PO ONE ×2 (06:25→06:38)
[2024-04-23] MEDS: NALOXONE (NYS OPIOID OVERDOSE PROGRAM) 4 MG/0.1 ML SPRAY NS SCH (08:45)
[2024-04-23 09:25] VITALS: BP 127/69; PULSE 93; RESP 17; TEMP 97.8
== END 2024-04-23 08:50 | disposition other institution (70) | DRG 897 ==
LOC: YASAS 17:49 → Y3N 19:32
PROVIDERS: ADMIT Allergy & Immunology; ATTEND Surgery
PROC: HZ2ZZZZ Detoxification Services for Substance Abuse Treatment (ICD-10-PCS; principal; 2024-04-19)
DX: F10.230 Alcohol dependence with withdrawal, uncomplicated (principal); F14.20 Cocaine dependence, uncomplicated; Z59.01 Sheltered homelessness; F12.20 Cannabis dependence, uncomplicated; F25.0 Schizoaffective disorder, bipolar type; F31.9 Bipolar disorder, unspecified; Z21 Asymptomatic human immunodeficiency virus [HIV] infection status; G40.909 Epilepsy, unspecified, not intractable, without status epilepticus; G47.10 Hypersomnia, unspecified; Z62.810 Personal history of physical and sexual abuse in childhood; Z91.410 Personal history of adult physical and sexual abuse; Z63.0 Problems in relationship with spouse or partner; Z63.8 Other specified problems related to primary support group; Z91.148 Patient's other noncompliance with medication regimen for other reason
CPT/HCPCS: 36415; 80053; 80307; 85027; 86593; 86780; 86803; 93005; 93010; Q0162